=== PATIENT | male | born 1995 | race Caucasian/White ===

== ENCOUNTER 2017-03-13 12:44 | Emergency (ER) | payer MEDICAID ==
[2017-03-13 13:07] VITALS: BP 145/100; PULSE 92; RESP 18; TEMP 99.5; O2SAT 96
--- NOTE | 2017-03-13 13:42 | EDPHY ---
H & P Time Seen by Provider: 03/13/17 13:15 HPI/ROS: Chief complaint. Sore throat HPI. 21-year-old male presents emergency department with sore throat low-grade fever for 3 days. Fever has been as high as 101 degrees but a more in the 100- 100.5 degree range. Some congestion. No cough or shortness of breath. He has a history of Crohn's disease and takes Humira. He has no abdominal symptoms including vomiting or diarrhea. No known exposures though he has recently been at [facility] [employer] and [employer] and has been exposed to quite a few people. ROS Constitutional. Fever Eyes. no problems with vision ENT. Congestion and sore throat Cardiovascular. no chest pain Respiratory. no shortness of breath, no cough Abdominal. no abdominal pain, no nausea/vomiting, no diarrhea . no problems urinating MS. no calf pain/swelling, no neck/back pain, no joint pain Skin. no rash Lymph. no swollen glands Neuro. no headache, no dizziness, no difficulty walking or with speech Past Medical/Surgical History: Crohn's disease on Humira Social History: Single, nonsmoker, no alcohol Smoking Status: Never smoked Physical Exam: General Appearance: Alert pleasant well-developed male vital signs show temp 37.5degrees Eyes: Pupils equal and round no pallor or injection. ENT, tympanic membranes are normal. Pharynx injected without exudate. Mucous membranes are moist. Respiratory: There are no retractions, lungs are clear to auscultation. Cardiovascular: Regular rate and rhythm. Gastrointestinal: Abdomen is soft and nontender, no masses, bowel sounds normal. Neurological: Awake and alert, sensory and motor exams grossly normal. Skin: Warm and dry, no rashes. Musculoskeletal: Neck is supple nontender. Extremities symmetrical, full range of motion. Psychiatric: Patient is oriented X 3, there is no agitation. Constitutional: Initial Vital Signs Temperature (C) 37.5 C 03/13/17 12:50 Heart Rate 92 03/13/17 12:50 Respiratory Rate 18 03/13/17 12:50 Blood Pressure 145/100 H 03/13/17 12:50 O2 Sat (%) 96 03/13/17 12:50 O2 Delivery Mode Room Air Allergies/Adverse Reactions: Penicillins Allergy (Verified 03/13/17 13:05) Home Medications: Medication Instructions Recorded Humira 05/25/16 Azithromycin [Zithromax] 250 mg PO DAILY #6 tab 03/13/17 Medical Decision Making Procedures: Strep swab ED Course/Re-evaluation: Re-evaluation patient is stable. We discussed strep results. We discussed treatment plan including extra caution for this patient because of his Humira. We discussed importance of follow-up and further evaluation. He expresses understanding and agreement Differential Diagnosis: This may be viral syndrome. I considered strep. Patient is immunosuppressed because of the Humira so we will take extra precautions and care of him. I also considered pneumonia. - Data Points Laboratory Results: 03/13/17 03/13/17 Unknown 12:55 Group A Strep Screen NEGATIVE (NEGATIVE) Group A Strep DNA Pending Departure - Departure Disposition: Home, Routine, Self-Care Clinical Impression: Pharyngitis Qualifiers: Pharyngitis/tonsillitis etiology: unspecified etiology Qualified Code(s): J02.9 - Acute pharyngitis, unspecified Condition: Good Instructions: Pharyngitis (ED) Additional Instructions: Drink plenty of fluids and stay hydrated. Tylenol 1000 mg every 4-6 hours, ibuprofen 600 mg every 6 hours for fever. Azithromycin as antibiotic. Return for worsening symptoms. Recheck in 2-3 days if not improved Referrals: [facility],. [Primary Care Provider] - 2-3 days, if not improved Prescriptions: Azithromycin [Zithromax] 250 mg PO DAILY #6 tab
== END 2017-03-13 13:50 | disposition home or self-care (01) ==
LOC: CED 12:44
DX: J02.9 Acute pharyngitis, unspecified (principal)
CPT/HCPCS: 87880-PO